=== PATIENT | male | born 1985 | race Caucasian/White ===

== ENCOUNTER 2018-04-24 21:55 | Emergency (ER) | payer OTHER ==
[2018-04-24 22:27] VITALS: RESP 18; TEMP 97.9
--- NOTE | 2018-04-24 23:25 | ED ---
Anxiety HPI - General Chief Complaint: Anxiety Stated Complaint: anxiety Time Seen by Provider: 04/24/18 22:32 Source: patient Mode of arrival: ambulatory - History of Present Illness MD Complaint: anxiety -: hour(s) Place: home Previous History of Same: Yes Quality: improving Provoking factors: emotional stress, work/job stress Worsens With: nothing - Related Data Home Medications: Home Medications Medication Instructions Recorded Confirmed No Known Home Medications 04/24/18 04/24/18 Allergies/Adverse Reactions: Allergies Allergy/AdvReac Type Severity Reaction Status Date / Time No Known Allergies Allergy Verified 04/24/18 22:50 Review of Systems ROS Statement: Those systems with pertinent positive or pertinent negative responses have been documented in the HPI. ROS Other: All systems not noted in ROS Statement are negative. Respiratory: Denies: cough, dyspnea Cardiovascular: Denies: chest pain Gastrointestinal: Denies: abdominal pain Skin: Denies: rash Neurological: Denies: headache Psychiatric: Reports: anxiety, depression. Denies: auditory hallucinations, visual hallucinations, homicidal thoughts, suicidal thoughts Past Medical History Past Medical History: No Reported History History of Any Multi-Drug Resistant Organisms: None Reported Past Surgical History: Joint Replacement Past Psychological History: ADD/ADHD, Anxiety, Depression Smoking Status: Never smoker Past Alcohol Use History: Occasional Past Drug Use History: Marijuana General Exam Limitations: no limitations General appearance: alert, in no apparent distress Head exam: Present: atraumatic, normocephalic Eye exam: Present: normal appearance. Absent: scleral icterus, conjunctival injection ENT exam: Present: normal oropharynx Respiratory exam: Present: normal lung sounds bilaterally. Absent: respiratory distress, wheezes, rales, rhonchi, stridor Cardiovascular Exam: Present: regular rate, normal rhythm, normal heart sounds. Absent: systolic murmur, diastolic murmur, rubs, gallop GI/Abdominal exam: Present: soft. Absent: distended, tenderness, guarding, rebound, mass Extremities exam: Present: normal inspection, normal capillary refill. Absent: pedal edema, calf tenderness Neurological exam: Present: alert, normal gait Psychiatric exam: Present: normal affect, depressed. Absent: agitated, anxious , manic, homicidal ideation, suicidal ideation Skin exam: Present: warm, dry, intact, normal color, rash Course Vital Signs 04/24/18 04/24/18 22:22 23:35 Temperature 97.9 F 97.9 F Pulse Rate 65 60 Respiratory 18 18 Rate Blood Pressure 157/101 139/83 O2 Sat by Pulse 100 97 Oximetry Disposition Clinical Impression: Acute anxiety Disposition: HOME SELF-CARE Condition: Good Instructions: Generalized Anxiety Disorder (ED) Is patient prescribed a controlled substance at d/c from ED?: No Referrals: Nonstaff,Physician [Primary Care Provider] - 1-2 days Dipesh Villagomez MD [STAFF PHYSICIAN] - 1-2 days
[2018-04-24 23:38] VITALS: BP 139/83; PULSE 60
== END 2018-04-24 23:35 | disposition home or self-care (01) ==
LOC: EC 21:55
DX: F41.9 Anxiety disorder, unspecified (principal)
CPT/HCPCS: 99283

== ENCOUNTER 2018-04-26 11:03 | Emergency (ER) | payer OTHER ==
--- NOTE | 2018-04-26 11:25 | ED ---
Psych HPI - General Chief Complaint: Psychiatric Symptoms Stated Complaint: Mental health/ inhaled aerosol spray Time Seen by Provider: 04/26/18 11:13 Source: patient, RN notes reviewed Mode of arrival: ambulatory Limitations: no limitations - History of Present Illness Initial Comments: 32-year-old male presented to emergency department with chief complaint of anxiety issue. Patient states he seen here couple days ago for anxiety. Patient states that he has been abusing inhalants and aerosols to alleviate his symptoms. Patient states that she's turned to alcohol and marijuana. Patient states he does not access to those so he states that he's been using inhalants. Patient states that he is trying to into rehab today but states he cannot get into it. Patient states that he is not suicidal or homicidal. Denies any physical complaints. - Related Data Home Medications Medication Instructions Recorded Confirmed No Known Home Medications 04/24/18 04/26/18 Allergies Allergy/AdvReac Type Severity Reaction Status Date / Time No Known Allergies Allergy Verified 04/26/18 11:50 Review of Systems ROS Statement: Those systems with pertinent positive or pertinent negative responses have been documented in the HPI. ROS Other: All systems not noted in ROS Statement are negative. Past Medical History Past Medical History: No Reported History History of Any Multi-Drug Resistant Organisms: None Reported Past Surgical History: Joint Replacement Past Psychological History: ADD/ADHD, Anxiety, Depression Smoking Status: Never smoker Past Alcohol Use History: Occasional Past Drug Use History: Marijuana General Exam Limitations: no limitations General appearance: alert, in no apparent distress Head exam: Present: atraumatic, normocephalic, normal inspection Eye exam: Present: normal appearance, PERRL, EOMI. Absent: scleral icterus, conjunctival injection, periorbital swelling ENT exam: Present: normal exam, normal oropharynx, mucous membranes moist Neck exam: Present: normal inspection, full ROM. Absent: tenderness, meningismus, lymphadenopathy Respiratory exam: Present: normal lung sounds bilaterally. Absent: respiratory distress, wheezes, rales, rhonchi, stridor Cardiovascular Exam: Present: regular rate, normal rhythm, normal heart sounds. Absent: systolic murmur, diastolic murmur, rubs, gallop, clicks GI/Abdominal exam: Present: soft, normal bowel sounds. Absent: distended, tenderness, guarding, rebound, rigid Skin exam: Present: warm, dry, intact, normal color. Absent: rash Course Vital Signs 04/26/18 11:11 Temperature 97.6 F Pulse Rate 59 L Respiratory 16 Rate Blood Pressure 155/91 O2 Sat by Pulse 99 Oximetry Medical Decision Making - Medical Decision Making 32-year-old male presented for anxiety issues, substance abuse issues. Patient was evaluated by [facility] and [facility]. Patient is going to rehab on Sunday and will be discharged to mother at this time. - Lab Data Lab Results 04/26/18 Range/Units 12:14 Urine Opiates Screen Not Detected (NotDetected) Ur Oxycodone Screen Not Detected (NotDetected) Urine Methadone Screen Not Detected (NotDetected) Ur Propoxyphene Screen Not Detected (NotDetected) Ur Barbiturates Screen Not Detected (NotDetected) U Tricyclic Antidepress Not Detected (NotDetected) Ur Phencyclidine Scrn Not Detected (NotDetected) Ur Amphetamines Screen Not Detected (NotDetected) U Methamphetamines Scrn Not Detected (NotDetected) U Benzodiazepines Scrn Not Detected (NotDetected) Urine Cocaine Screen Not Detected (NotDetected) U Marijuana (THC) Screen Detected H (NotDetected) Disposition Clinical Impression: Acute anxiety, Substance abuse Disposition: HOME SELF-CARE Condition: Stable Instructions: Generalized Anxiety Disorder (ED) Additional Instructions: Please return to the Emergency Department if symptoms worsen or any other concerns. Is patient prescribed a controlled substance at d/c from ED?: No Referrals: Nonstaff,Physician [Primary Care Provider] - 1-2 days Time of Disposition: 15:18
[2018-04-26 13:04] LABS: Amphetamine Screen,Urine Not Detected (NotDetected); Barbiturate Screen,Urine Not Detected (NotDetected); Benzodiazepines Screen,Urine Not Detected (NotDetected); Cocaine Screen,Urine Not Detected (NotDetected); Methadone Screen, Urine Not Detected (NotDetected); Opiate Screen,Urine Not Detected (NotDetected); Oxycodone Screen, Urine Not Detected (NotDetected); Phencyclidine Screen,Urine Not Detected (NotDetected); Tricyclic Antidepressant,Urine Not Detected (NotDetected); Urn Cannabinoid Scrn Detected (NotDetected)
[2018-04-26 15:31] VITALS: BP 136/61; PULSE 69; RESP 18; TEMP 98.6
== END 2018-04-26 15:30 | disposition home or self-care (01) ==
LOC: EC 11:03
DX: F41.9 Anxiety disorder, unspecified (principal); F18.10 Inhalant abuse, uncomplicated
CPT/HCPCS: 80306; 82075; 99283; 99284